=== PATIENT | male | born 1960 | race Caucasian/White ===

== ENCOUNTER 2021-10-06 20:05 | Emergency (ER) | payer MEDICAID ==
[~2021-10-06] VITALS: Ht 165.1 cm; Wt 107.5 kg
[2021-10-06 20:16] VITALS: BP 157/86
== END 2021-10-06 21:31 | disposition left against medical advice (07) ==
LOC: ER 20:05
DX: Z53.21 Procedure and treatment not carried out due to patient leaving prior to being seen by health care provider (principal)
CPT/HCPCS: 99281